=== PATIENT | male | born 1990 | race Caucasian/White ===

== ENCOUNTER → 2022-10-07 | Outpatient (CLI) | payer OTHER ==
[~2022-10-07] MED LIST: IBUP600 PO; PROM25 PO; Percocet 5-3251 EACH PO; ZOLM2.5 PO
== END | disposition home or self-care (01) ==
LOC: LAB SHORT 14:17 → LAB 14:17
DX: I50.22 Chronic systolic (congestive) heart failure (principal)
CPT/HCPCS: 84484

== ENCOUNTER 2023-07-19 12:59 | Inpatient (IN) | payer OTHER ==
[~2023-07-19] VITALS: Ht 188 cm; Wt 120.5 kg
[2023-07-19 13:19] LABS: BASOPHILS ABSOLUTE AUTO 0.03 K/mm3 (0.00-0.23); BASOPHILS PERCENT AUTO 0 % (0-2); EOSINOPHILS PERCENT AUTO 0 % (0-6); Hematocrit 40.4 % (37.0-53.0); Hemoglobin 13.8 g/dL (13.5-17.5); IMMATURE GRAN ABSOLUTE AUTO 0.05 K/mm3 (0.00-0.10); IMMATURE GRAN PERCENT AUTO 0 % (0-1); LYMPHOCYTES ABSOLUTE AUTO 1.37 K/mm3 (0.84-5.20); LYMPHOCYTES PERCENT AUTO 10 % (21-46); MONOCYTES ABSOLUTE AUTO 1.19 K/mm3 (0.16-1.47); MONOCYTES PERCENT AUTO 8 % (4-13); Mean Corpuscular HGB 30.5 pg (26.0-34.0); Mean Corpuscular HGB Conc 34.2 g/dL (31.5-36.5); Mean Corpuscular Volume 89 fL (80-100); Mean Platelet Volume 10.1 fL (9.1-12.4); NEUTROPHILS ABSOLUTE AUTO 11.65 K/mm3 (1.96-9.15); NEUTROPHILS PERCENT AUTO 82 % (41-73); Platelet Count 176 K/mm3 (150-400); RDW Coefficient Variation 12.3 % (11.7-14.2); RDW Standard Deviation 40.4 fL (35.1-46.3); Red Blood Cell Count 4.53 M/mm3 (4.30-5.90); White Blood Cell Count 14.29 K/mm3 (4.00-11.30)
[2023-07-19] MEDS ORDERED: ENTRESTO 24 MG1 EACH PO (13:26)
[2023-07-19] MEDS ORDERED: CARV3.125 PO (13:26)
[2023-07-19 13:48] LABS: Albumin, Blood 3.4 g/dL (3.4-5.0); Albumin/Globulin Ratio 0.7 (0.8-1.8); Bun/Creatinine Ratio 35.7 (12.0-20.0); Creatinine, Blood 0.22 mg/dL (0.60-1.20); Globulin, Blood 4.6 g/dL (2.2-4.0); Potassium, Blood 3.4 mmol/L (3.5-5.5)
[2023-07-19 14:18] LABS: Influenza A, PCR NEGATIVE (NEGATIVE); Influenza B, PCR NEGATIVE (NEGATIVE); Resp Syncytial Virus, PCR NEGATIVE (NEGATIVE); SARS-Cov-2 (COVID-19) PCR, MMC NEGATIVE (NEGATIVE)
--- NOTE | 2023-07-19 19:06 | NUR ---
PT ADMITTED FROM ED 1719 VIA STRETCHER TO BED SLIDE. PT A/O X4, ORIENTED TO ROOM, CALL LIGHT AND SAFETY. ROOM AIR, RESP EVEN UNLABORED. WEAK NONPROD COUGH, LUNGS COARSE MID, DIM LOWER LOBEWS. WILL ADMIT PT
[2023-07-19] MEDS ORDERED: SUMA25 PO (19:10)
[2023-07-19 19:37] VITALS: BP 133/98
--- NOTE | 2023-07-19 21:01 | NUR ---
NOTIFIED BY HEMATOLOGY ABOUT CRITICAL TROPONIN 824 UP FROM 800. PT IS ASYMPTOMATIC AT THIS TIME NO C/O CP/PRESSURE. HOSPITALIST NOTIFIE AND NO NEW INSTRUCTIONS GIVEN. WILL CONTINUE TO MONITOR PT FOR CHANGE IN CONDITION.
[2023-07-20 02:51] VITALS: BP 98/78
--- NOTE | 2023-07-20 04:32 | NUR ---
SHIFT SUMMARY NOC A/O X 4. PLEASANT AND COOPERATIVE WITH CARE. ADMIT YESTERDAY FOR PNA. PT ALSO HAD ELEVATED TROPONINS OF 807 AND 824, PT REPORTS CHRONIC TROPONIN ELEVATION DUE TO MUSCULAR DYSTROPHY. HOSPITALIST NOTIFIED OF CRITICAL TROPONIN LEVELS AND INSTRUCTIONS GIVEN TO CONTINUE MONITORING PT FOR ANY ACUTE CHANGES. ON TELE RUNNING SINUS TACH IN 110'S AT BEGINNING OF SHIFT, BUT HAS SETTLED INTO SINUS RHYTHM IN HIGH 70'S SINCE. PT ENCOURAGED TO USE FLUTTER VAVLE TO HELP LOOSEN UP SECRETIONS AND DEMONSTRATED WITH DESIRED EFFECT OF EXPELLING MUCUS FROM AIRWAY. PT HAS ECHO SCHEDULED FOR TODAY. PT IS CURRENTLY RESTING WITH BED IN LOWEST POSITION, AND CALL LIGHT WITHIN REACH.
[2023-07-20 05:13] LABS: Hematocrit 39.2 % (37.0-53.0); Hemoglobin 13.2 g/dL (13.5-17.5); Mean Corpuscular HGB 30.7 pg (26.0-34.0); Mean Corpuscular HGB Conc 33.7 g/dL (31.5-36.5); Mean Corpuscular Volume 91 fL (80-100); Mean Platelet Volume 10.4 fL (9.1-12.4); Platelet Count 155 K/mm3 (150-400); RDW Coefficient Variation 12.4 % (11.7-14.2); RDW Standard Deviation 41.4 fL (35.1-46.3); White Blood Cell Count 11.67 K/mm3 (4.00-11.30)
[2023-07-20 05:50] LABS: Albumin, Blood 3.2 g/dL (3.4-5.0); Anion Gap 7 mmol/L (6-16); Blood Urea Nitrogen 14 mg/dL (8-24); Bun/Creatinine Ratio 56.9 (12.0-20.0); CO2, Blood 26 mmol/L (21-32); Calcium, Blood 8.8 mg/dL (8.5-10.1); Chloride, Blood 102 mmol/L (98-108); Creatinine, Blood 0.25 mg/dL (0.60-1.20); Glomerular Filtration Rate 172 (60-); Glucose, Blood 104 mg/dL (70-99); Magnesium, Blood 1.8 mg/dL (1.6-2.4); Phosphorus, Blood 2.4 mg/dL (2.5-4.9); Potassium, Blood 3.6 mmol/L (3.5-5.5); Sodium, Blood 135 mmol/L (136-145)
[2023-07-20 07:29] VITALS: BP 112/77
[2023-07-20 15:28] VITALS: BP 113/82
--- NOTE | 2023-07-20 19:55 | NUR ---
SUMMARY- PT A/O X4. BEDREST WITH MUSC DYST HX. USES CALL LIGHT APPROPRIATE. BEDREST. USES URINAL. PT'S RESP EVEN UNLABORED. LUNGS CLEAR, DIM BASES. COUGHING UP SOME PHLEGM, PINK TINGE. ROOM AIR, SATS >94%. TOLERATING FOOD AND FLUID. ECHO PERFORMED TODAY. PT HAVING LOOSE STOOL TODAY X2. STATES THIS STARTED JUST SINCE HE'D BEEN IN THE HOSPITAL. TOLERATING FOOD AND FLUIDS. TROP'S ELEVATED, BUT PT STATES HE HAS A HX OF ELEVATED TROP'S LIKELY RELATED TO MUSC DYST. REPORTED ALL TO NOC RN
[2023-07-20 20:05] VITALS: BP 112/74
[2023-07-21 03:49] VITALS: BP 112/86
--- NOTE | 2023-07-21 04:07 | NUR ---
SHIFT SUMMARY RACK CLEANER&OX4 AND ANSWERS QUESTIONS APPROPRIATELY. AT START OF SHIFT PT VERBALIZED HAVING MULTIPLE LOOSE STOOLS, CALLED PROVIDER AND OBTAINED ORDER FOR PRN IMODIUM. PT USED BEDPAN AND HAD ANOTHER LOOSE STOOL, IMODIUM ADMINISTERED. PT HAD NO COMPLAINTS OF PAIN, SOB, OR CHEST PAIN. PT SLEPT THROUGH MOST OF SHIFT, RESPIRATIONS ARE EVEN AND UNLABORED. NO ACUTE EVENTS DURING SHIFT. PT LEFT IN A POSITION OF SAFETY WITH PROPER FALL PRECAUTIONS IN PLACE AND CALL LIGHT IN REACH.
[2023-07-21 07:24] VITALS: BP 113/75
[2023-07-21 07:47] LABS: Hematocrit 38.7 % (37.0-53.0); Hemoglobin 13.2 g/dL (13.5-17.5); Mean Corpuscular HGB Conc 34.1 g/dL (31.5-36.5); Mean Corpuscular Volume 91 fL (80-100); Mean Platelet Volume 10.3 fL (9.1-12.4); Platelet Count 194 K/mm3 (150-400); RDW Coefficient Variation 12.5 % (11.7-14.2); RDW Standard Deviation 41.1 fL (35.1-46.3); Red Blood Cell Count 4.26 M/mm3 (4.30-5.90); White Blood Cell Count 10.62 K/mm3 (4.00-11.30)
[2023-07-21 08:02] LABS: Bun/Creatinine Ratio 46.9 (12.0-20.0); Creatinine, Blood 0.19 mg/dL (0.60-1.20); Potassium, Blood 3.5 mmol/L (3.5-5.5)
[2023-07-21] MEDS ORDERED: DOXY100 PO (11:32)
[2023-07-21] MEDS ORDERED: GUAI600T33 PO (11:32)
[2023-07-21] MEDS ORDERED: THERA-D2000 UNIT PO (11:33)
--- NOTE | 2023-07-21 14:40 | NUR ---
PT AWAKE DURING SHIFT REPORT, SITTING UP IN BED WATCHING TV. PT IS A&O, PLEASANT AND CO-OP WITH CARE. HX OF MUSCULAR DYSTROPHY; PT WITH SENSATION TO LE'S BUT NO MOVEMENT. ADMITTED FOR PNM; IMPROVED. PT ON RA. DR LARA IN TO SEE PT AND DISCUSSED PLAN OF CARE. PT TO GO HOME ON PO ABX. D/C ORDERS PLACED. MEDS FAXED TO [facility], PER PT REQUEST. PT CALLED HIS DAD TO BRING IN HOME W/C FOR D/C TO HOME. BELONGINGS WENT WITH PT. PT'S DAD ASSISTED PT OUT TO [place].
== END 2023-07-21 13:10 | disposition home or self-care (01) | DRG 871 ==
LOC: ER 12:59 → MEDS 16:50
PROVIDERS: Emergency Medicine; ADMIT Internal Medicine
DX: A41.9 Sepsis, unspecified organism (principal); J18.9 Pneumonia, unspecified organism; I50.22 Chronic systolic (congestive) heart failure; G71.00 Muscular dystrophy, unspecified; Z99.3 Dependence on wheelchair; Z11.52 Encounter for screening for COVID-19
CPT/HCPCS: 0241U; 36415; 71045; 80048; 80053; 80069; 83735; 83880; 84145; 84484; 85025; 85027; 93005; 93010; 93306; 94664; 94760; 96365; 96366; 96367; 99285-25; A9270; J0456; J0696; J1650; J7030; J7050

== ENCOUNTER → 2024-05-19 | Outpatient (CLI) | payer OTHER ==
[~2024-05-19] MED LIST changes: +CARV3.125 PO; +DOXY100 PO; +ENTRESTO 24 MG1 EACH PO; +GUAI600T33 PO; +SUMA25 PO; +THERA-D2000 UNIT PO
[2024-05-19 19:12] LABS: BASOPHILS ABSOLUTE AUTO 0.06 K/mm3 (0.00-0.23); BASOPHILS PERCENT AUTO 1 % (0-2); EOSINOPHILS PERCENT AUTO 1 % (0-6); Hematocrit 49.3 % (37.0-53.0); Hemoglobin 16.4 g/dL (13.5-17.5); IMMATURE GRAN ABSOLUTE AUTO 0.02 K/mm3 (0.00-0.10); IMMATURE GRAN PERCENT AUTO 0 % (0-1); LYMPHOCYTES ABSOLUTE AUTO 3.22 K/mm3 (0.84-5.20); LYMPHOCYTES PERCENT AUTO 32 % (21-46); MONOCYTES ABSOLUTE AUTO 0.56 K/mm3 (0.16-1.47); MONOCYTES PERCENT AUTO 6 % (4-13); Mean Corpuscular HGB 30.5 pg (26.0-34.0); Mean Corpuscular HGB Conc 33.3 g/dL (31.5-36.5); Mean Corpuscular Volume 92 fL (80-100); Mean Platelet Volume 11.3 fL (9.1-12.4); NEUTROPHILS ABSOLUTE AUTO 6.06 K/mm3 (1.96-9.15); NEUTROPHILS PERCENT AUTO 61 % (41-73); Platelet Count 251 K/mm3 (150-400); RDW Coefficient Variation 13.9 % (11.7-14.2); RDW Standard Deviation 46.5 fL (35.1-46.3); Red Blood Cell Count 5.38 M/mm3 (4.30-5.90); White Blood Cell Count 10.02 K/mm3 (4.00-11.30)
[2024-05-19 19:16] LABS: Albumin, Blood 3.6 g/dL (3.4-5.0); Albumin/Globulin Ratio 1.1 (0.8-1.8); Bilirubin, Total 3.3 mg/dL (0.1-1.0); Calcium, Blood 8.9 mg/dL (8.5-10.1); Creatinine, Blood 0.27 mg/dL (0.60-1.20); Globulin, Blood 3.4 g/dL (2.2-4.0); Potassium, Blood 3.8 mmol/L (3.5-5.5)
== END | disposition home or self-care (01) ==
LOC: LAB 17:17 → LAB SHORT 17:17
PROVIDERS: Hospitalist
DX: I50.22 Chronic systolic (congestive) heart failure (principal)
CPT/HCPCS: 80053; 83880; 85025

== ENCOUNTER 2024-05-21 16:35 | Emergency (ER) | payer OTHER ==
[~2024-05-21] VITALS: Ht 190.5 cm; Wt 120.2 kg
[2024-05-21 16:59] VITALS: BP 111/79
[2024-05-21 17:36] LABS: BASOPHILS PERCENT AUTO 1 % (0-2); EOSINOPHILS PERCENT AUTO 1 % (0-6); Hematocrit 47.6 % (37.0-53.0); IMMATURE GRAN ABSOLUTE AUTO 0.04 K/mm3 (0.00-0.10); IMMATURE GRAN PERCENT AUTO 0 % (0-1); LYMPHOCYTES ABSOLUTE AUTO 2.01 K/mm3 (0.84-5.20); LYMPHOCYTES PERCENT AUTO 19 % (21-46); MONOCYTES ABSOLUTE AUTO 0.61 K/mm3 (0.16-1.47); MONOCYTES PERCENT AUTO 6 % (4-13); Mean Corpuscular HGB 30.5 pg (26.0-34.0); Mean Corpuscular HGB Conc 33.6 g/dL (31.5-36.5); Mean Corpuscular Volume 91 fL (80-100); Mean Platelet Volume 10.7 fL (9.1-12.4); NEUTROPHILS ABSOLUTE AUTO 7.81 K/mm3 (1.96-9.15); NEUTROPHILS PERCENT AUTO 73 % (41-73); Platelet Count 234 K/mm3 (150-400); RDW Coefficient Variation 13.9 % (11.7-14.2); RDW Standard Deviation 46.6 fL (35.1-46.3); Red Blood Cell Count 5.24 M/mm3 (4.30-5.90); White Blood Cell Count 10.67 K/mm3 (4.00-11.30)
[2024-05-21 18:08] LABS: Magnesium, Blood 1.5 mg/dL (1.6-2.4)
[2024-05-21 18:13] LABS: Albumin, Blood 3.4 g/dL (3.4-5.0); Bilirubin, Total 3.4 mg/dL (0.1-1.0); Bun/Creatinine Ratio 53.5 (12.0-20.0); Calcium, Blood 8.5 mg/dL (8.5-10.1); Creatinine, Blood 0.24 mg/dL (0.60-1.20); Globulin, Blood 3.5 g/dL (2.2-4.0); Potassium, Blood 3.9 mmol/L (3.5-5.5); Thyroid Stimulating Hormone 4.3 uIU/mL (0.360-4.800); Total Protein, Blood 6.9 g/dL (6.4-8.2)
[2024-05-21 20:44] LABS: Source, Urine Clean Catch
[2024-05-21 20:50] LABS: Appearance, Urine Clear (Clear); Bilirubin, Urine Neg (Neg); Blood, Urine Neg (Neg); Color, Urine Yellow (P-Yellow); Glucose Qualitative, Urine Neg (Neg); Ketones, Urine Neg (Neg); Leukocyte Esterase, Urine Neg (Neg); Nitrite, Urine Neg (Neg); Protein, Urine 2+ (Neg); Specific Gravity, Urine 1.015 (1.003-1.022); Urobilinogen, Urine 1+ (Normal)
[2024-05-21 20:57] LABS: Bacteria Few /hpf; Squamous Epithelial Cells Rare /hpf (Few); White Blood Cells, Urine 0-2 /hpf (0-5)
== END 2024-05-21 21:29 | disposition home or self-care (01) ==
LOC: ER 16:35
PROVIDERS: Emergency Medicine
DX: E80.6 Other disorders of bilirubin metabolism (principal); K76.0 Fatty (change of) liver, not elsewhere classified; Z79.899 Other long term (current) drug therapy; I50.9 Heart failure, unspecified
CPT/HCPCS: 71046; 74177; 80053; 81001; 83735; 84443; 84484; 85025; 93005; 93010; 99285-25; Q9967